=== PATIENT | male | born 2000 | race African-American/Black ===

== ENCOUNTER 2023-11-26 11:27 | Emergency (ER) | payer OTHER ==
[~2023-11-26] VITALS: Ht 167.6 cm; Wt 105.1 kg
[~2023-11-26 11:27] MED LIST: CLOB5CR TOP
[2023-11-26 11:40] VITALS: BP 169/82; TEMP 98.3; O2SAT 95
[2023-11-26] MEDS ORDERED: CLOB0.0548 (12:51)
[2023-11-26] MEDS ORDERED: UREA39LO EX (14:45)
== END 2023-11-26 14:54 | disposition home or self-care (01) ==
LOC: M ED 11:27
DX: L26 Exfoliative dermatitis (principal); Z79.899 Other long term (current) drug therapy

== ENCOUNTER 2024-01-08 08:19 | Emergency (ER) | payer OTHER ==
[~2024-01-08] VITALS: Ht 167.6 cm; Wt 108.4 kg
[~2024-01-08 08:19] MED LIST changes: +CLOB0.0548; +UREA39LO EX
[2024-01-08 08:20] VITALS: TEMP 98.8
[2024-01-08 09:31] VITALS: BP 138/82; O2SAT 99
[2024-01-08] MEDS ORDERED: UREA1CRE3 TP (10:07)
[2024-01-08] MEDS ORDERED: CLOB5CR TOP (10:07)
== END 2024-01-08 10:22 | disposition home or self-care (01) ==
LOC: M ED 08:19
DX: L26 Exfoliative dermatitis (principal); Z79.899 Other long term (current) drug therapy